=== PATIENT | female | born 1985 | race Caucasian/White ===

== ENCOUNTER 2022-12-05 19:58 | Inpatient (IN) | payer SELFPAY ==
[2022-12-05] MEDS ORDERED: Ondansetron ODT 4 MG TAB PO PRN (22:17)
[2022-12-05] MEDS ORDERED: Acetaminophen 650 MG Suppository PR PRN (22:17)
[2022-12-05] MEDS ORDERED: Sodium Chloride 0.9% 1,000 ML IV SCH ×2 (22:45)
[2022-12-05] MEDS: Morphine 4 MG/ML VIAL SLOW IVP PRN (23:06)
[2022-12-05] MEDS: Sodium Chloride 0.9% 1,000 ML IV SCH (23:12)
[2022-12-06 00:03] LABS: SARS-CoV-2 NAA Rapid Test Not Detected (NotDetected)
[2022-12-06] MEDS ORDERED: Morphine 4 MG/ML VIAL SLOW IVP SCH (00:30)
[2022-12-06] MEDS: Morphine 4 MG/ML VIAL SLOW IVP PRN ×5 (01:52→14:12)
[2022-12-06] MEDS: Sodium Chloride 0.9% 1,000 ML IV SCH ×3 (03:11→08:08)
[2022-12-06] MEDS: Ondansetron PF 4 MG/2 ML Vial IVP PRN ×2 (03:59→19:13)
[2022-12-06 06:10] LABS: Hemoglobin A1c 5.4 % (4.0-6.0)
[2022-12-06 06:28] LABS: Cardiac Risk 3.4 (Less than 4.5)
[2022-12-06] MEDS ORDERED: Sodium Chloride 0.9% 1,000 ML IV SCH (08:00)
[2022-12-06] MEDS: Pantoprazole 40 MG VIAL IVP SCH (08:48)
[2022-12-06] MEDS: D5 1/2 NS w/20 mEq KCL 1,000 ML IV SCH ×3 (08:48→20:04)
[2022-12-06 09:14] LABS: ALT (SGPT) 336 U/L (8-55); AST (SGOT) 152 U/L (5-34); Albumin 3.4 g/dL (3.5-5.0); Alkaline Phosphatase 194 U/L (40-110); Bilirubin, Direct 0.4 mg/dL (0.1-0.3); Bilirubin, Total 0.8 mg/dL (0.2-1.2); Protein, Total 6.2 g/dL (6.0-8.3)
[2022-12-06 09:27] LABS: Lipase 4573 U/L (8-78)
[2022-12-06] MEDS ORDERED: Indomethacin 50 MG SUPP ONE (09:33)
[2022-12-06] MEDS ORDERED: Iopamidol 15 ML ONE (09:34)
[2022-12-06] MEDS ORDERED: Fentanyl 100 MCG/2 ML VIAL ONE (09:38)
[2022-12-06] MEDS ORDERED: PHENYLEPHRINE-NS 100 MCG/ML 10 ML SYRINGE ONE (09:53)
[2022-12-06] MEDS ORDERED: Ondansetron PF 4 MG/2 ML Vial ONE ×2 (09:53→11:06)
[2022-12-06] MEDS ORDERED: Dexamethasone 20 MG/5 ML VIAL ONE (09:53)
[2022-12-06] MEDS ORDERED: Rocuronium Bromide 10 MG/ML (10ML VIAL) ONE (09:53)
[2022-12-06] MEDS ORDERED: PROPOFOL 200 MG/20 ML VIAL ONE (09:53)
[2022-12-06] MEDS ORDERED: Lidocaine 1% PF 5 ML VIAL ONE (09:53)
[2022-12-06] MEDS ORDERED: Glycopyrrolate 0.2 MG/ML 5 ML SYRINGE ONE (09:53)
[2022-12-06] MEDS ORDERED: NEOSTIGMINE 3 MG/3 ML SYR 3 MG/3 ML SYRINGE ONE (09:53)
[2022-12-06] MEDS ORDERED: Promethazine HCl 25 MG/ML VIAL IM PRN (10:59)
[2022-12-06] MEDS ORDERED: Ondansetron HCl/PF 4 MG/2 ML Vial IVP PRN (10:59)
[2022-12-06] MEDS ORDERED: Albuterol 200 PUFF (6.7GM INHALER) INH PRN (13:00)
[2022-12-06 16:58] LABS: Hemoglobin 14.8 g/dL (12.0-16.0)
[2022-12-06] MEDS: Morphine 2 MG/ML VIAL SLOW IVP PRN ×2 (19:08→23:14)
[2022-12-07] MEDS: Morphine 2 MG/ML VIAL SLOW IVP PRN ×2 (05:09→07:43)
[2022-12-07] MEDS: Ondansetron PF 4 MG/2 ML Vial IVP PRN (05:10)
[2022-12-07] MEDS: D5 1/2 NS w/20 mEq KCL 1,000 ML IV SCH (05:10)
[2022-12-07 05:28] LABS: Hemoglobin 13.4 g/dL (12.0-16.0); Mean Corpuscular HGB CONC 30.6 g/dL (32.0-36.0); Mean Corpuscular Hemoglobin 27.9 pg (27.0-31.0); Mean Corpuscular Volume 91.3 fl (78.0-98.0); Platelet Count 250 10x3/uL (130-400); RBC Distribution Width 13.1 % (11.5-14.5); Red Blood Cell (RBC) Count 4.81 mill/uL (4.20-5.40); White Blood Cell (WBC) Count 13.2 10x3/uL (4.8-10.8)
[2022-12-07 05:44] LABS: ALT (SGPT) 159 U/L (8-55); AST (SGOT) 61 U/L (5-34); Albumin 3.1 g/dL (3.5-5.0); Alkaline Phosphatase 107 U/L (40-110); Anion Gap 19 mmol/L (10-20); BUN (Urea Nitrogen) 32 mg/dL (7.0-18.7); Bilirubin, Total 0.6 mg/dL (0.2-1.2); Calc. Creatinine Clearance 66 mL/min (70-130); Carbon Dioxide 12 mmol/L (22-29); Chloride 106 mmol/L (98-107); Estimated GFR 40; Globulin 2.8 g/dL (2.4-3.5); Potassium 5.7 mmol/L (3.5-5.1); Protein, Total 5.9 g/dL (6.0-8.3); Sodium 131 mmol/L (136-145)
[2022-12-07 05:51] LABS: Calcium 4.9 mg/dL (7.8-10.44); Glucose 654 mg/dL (70-105)
[2022-12-07 05:53] LABS: Band 33 % (5-11); Lymphocytes 3 % (21-51); MDiff Complete? YES; Monocytes 4 % (0-10); Neutrophil 60 % (42-75)
[2022-12-07 05:57] LABS: Lipase 4997 U/L (8-78)
[2022-12-07] MEDS ORDERED: Dextrose 5% in Water 1,000 ML IV PRN (06:04)
[2022-12-07] MEDS ORDERED: Dextrose 50% Abboject 50 ML SYRINGE SLOW IVP PRN (06:04)
[2022-12-07] MEDS ORDERED: CALCIUM GLUC 1 GM/NS 50 ML 1 GM in Premix Bag 1 BAG IVPB SCH ×2 (06:15→11:45)
[2022-12-07] MEDS ORDERED: Insulin Regular 300 UNITS/3 ML VIAL SC SCH (06:15)
[2022-12-07] MEDS ORDERED: Calcium Carbonate 600 MG TAB PO SCH ×2 (06:30→20:45)
[2022-12-07] MEDS: Pantoprazole 40 MG VIAL IVP SCH (07:23)
[2022-12-07] MEDS: HumaLOG 300 UNITS/3 ML VIAL SC PRN ×2 (07:49→10:55)
[2022-12-07 08:21] LABS: Glucose 648 mg/dL (70-105)
[2022-12-07] MEDS ORDERED: Insulin Regular 300 UNITS/3 ML VIAL IVP SCH (08:30)
[2022-12-07] MEDS: Sodium Chloride 0.9% 1,000 ML IV SCH ×3 (08:33→20:15)
[2022-12-07] MEDS ORDERED: FENTANYL 50 MCG/ML 1 ML VIAL SLOW IVP PRN ×3 (09:17→10:11)
[2022-12-07] MEDS ORDERED: Sodium Chloride 0.9% 1,000 ML IV SCH (10:15)
[2022-12-07 10:48] LABS: Lactic Acid 2.4 mmol/L (0.5-2.2)
[2022-12-07 10:51] LABS: Anion Gap 16 mmol/L (10-20); BUN (Urea Nitrogen) 35 mg/dL (7.0-18.7); Calc. Creatinine Clearance 69 mL/min (70-130); Carbon Dioxide 13 mmol/L (22-29); Chloride 110 mmol/L (98-107); Estimated GFR 42; Potassium 4.9 mmol/L (3.5-5.1); Sodium 134 mmol/L (136-145)
[2022-12-07 11:28] LABS: Calcium 4.8 mg/dL (7.8-10.44); Glucose 576 mg/dL (70-105)
[2022-12-07] MEDS ORDERED: INSULIN REGULAR IN 0.9 % NACL 100 UNIT/100 ML BAG IVPB SCH (11:30)
[2022-12-07] MEDS ORDERED: HUMULIN R 100 UNITS in Sodium Chloride 0.9% 100 ML IVPB SCH (11:45)
[2022-12-07] MEDS: Fentanyl 100 MCG/2 ML VIAL SLOW IVP PRN ×5 (13:25→23:02)
[2022-12-07 14:14] LABS: Glucose 504 mg/dL (70-105)
[2022-12-07 15:52] LABS: Glucose 446 mg/dL (70-105)
[2022-12-07] MEDS ORDERED: Piperacillin/Tazobactam 3.375 GM in Sodium Chloride 0.9% 100 ML IVPB SCH ×2 (18:45→19:00)
[2022-12-07 20:08] LABS: Anion Gap 15 mmol/L (10-20); BUN (Urea Nitrogen) 36 mg/dL (7.0-18.7); Calc. Creatinine Clearance 72 mL/min (70-130); Carbon Dioxide 15 mmol/L (22-29); Chloride 112 mmol/L (98-107); Estimated GFR 44; Glucose 319 mg/dL (70-105); Potassium 4.6 mmol/L (3.5-5.1); Sodium 137 mmol/L (136-145)
[2022-12-07 20:11] LABS: Calcium 4.6 mg/dL (7.8-10.44)
[2022-12-07] MEDS ORDERED: Calcium Chloride 13.6 MEQ in Sodium Chloride 0.9% 100 ML IVPB SCH (20:45)
[2022-12-07] MEDS: Piperacillin/Tazobactam 3.375 GM in Sodium Chloride 0.9% 100 ML IVPB SCH (23:02)
[2022-12-08] MEDS: Fentanyl 100 MCG/2 ML VIAL SLOW IVP PRN ×10 (01:21→23:53)
[2022-12-08 04:31] LABS: Hemoglobin 12.6 g/dL (12.0-16.0); Mean Corpuscular HGB CONC 32.7 g/dL (32.0-36.0); Mean Corpuscular Volume 88.8 fl (78.0-98.0); Mean Platelet Volume 8.6 fL (7.4-10.4); Platelet Count 248 10x3/uL (130-400); RBC Distribution Width 13.1 % (11.5-14.5); Red Blood Cell (RBC) Count 4.34 mill/uL (4.20-5.40); White Blood Cell (WBC) Count 15.9 10x3/uL (4.8-10.8)
[2022-12-08 04:51] LABS: Lactic Acid 1.9 mmol/L (0.5-2.2)
[2022-12-08 04:55] LABS: ALT (SGPT) 91 U/L (8-55); AST (SGOT) 49 U/L (5-34); Albumin 2.6 g/dL (3.5-5.0); Alkaline Phosphatase 68 U/L (40-110); Anion Gap 14 mmol/L (10-20); BUN (Urea Nitrogen) 37 mg/dL (7.0-18.7); Bilirubin, Total 0.5 mg/dL (0.2-1.2); Calc. Creatinine Clearance 78 mL/min (70-130); Carbon Dioxide 14 mmol/L (22-29); Chloride 115 mmol/L (98-107); Estimated GFR 49; Globulin 2.7 g/dL (2.4-3.5); Glucose 216 mg/dL (70-105); Potassium 4.4 mmol/L (3.5-5.1); Protein, Total 5.3 g/dL (6.0-8.3); Sodium 139 mmol/L (136-145)
[2022-12-08 05:00] LABS: Calcium 4.8 mg/dL (7.8-10.44)
[2022-12-08 05:59] LABS: Band 13 % (5-11); Lymphocytes 14 % (21-51); MDiff Complete? YES; Monocytes 3 % (0-10); Neutrophil 70 % (42-75); Platelet Morphology Comment Appears Adequate; RBC Morphology Normal
[2022-12-08 06:07] LABS: Lipase 2847 U/L (8-78)
[2022-12-08] MEDS: Piperacillin/Tazobactam 3.375 GM in Sodium Chloride 0.9% 100 ML IVPB SCH ×3 (06:07→21:10)
[2022-12-08] MEDS: Sodium Chloride 0.9% 1,000 ML IV SCH ×3 (06:14→22:35)
[2022-12-08 08:20] LABS: Magnesium 1.3 mg/dL (1.6-2.6)
[2022-12-08] MEDS: Calcium Carbonate 600 MG TAB PO SCH (08:21)
[2022-12-08] MEDS: Pantoprazole 40 MG VIAL IVP SCH (08:21)
[2022-12-08] MEDS ORDERED: Magnesium 2 GM/50 ML(in water) 2 GM in Premix Bag 1 BAG IVPB SCH (08:30)
[2022-12-08] MEDS: HumaLOG 300 UNITS/3 ML VIAL SC PRN ×2 (21:07→23:58)
[2022-12-09 04:23] LABS: Hemoglobin 10.1 g/dL (12.0-16.0); Mean Corpuscular Hemoglobin 28.6 pg (27.0-31.0); Mean Corpuscular Volume 89.7 fl (78.0-98.0); Mean Platelet Volume 8.7 fL (7.4-10.4); Platelet Count 198 10x3/uL (130-400); RBC Distribution Width 13.3 % (11.5-14.5); Red Blood Cell (RBC) Count 3.52 mill/uL (4.20-5.40); White Blood Cell (WBC) Count 14.7 10x3/uL (4.8-10.8)
[2022-12-09] MEDS: Fentanyl 100 MCG/2 ML VIAL SLOW IVP PRN ×6 (04:30→23:56)
[2022-12-09 04:54] LABS: Anion Gap 16 mmol/L (10-20); BUN (Urea Nitrogen) 27 mg/dL (7.0-18.7); Calc. Creatinine Clearance 139 mL/min (70-130); Calcium 3.9 mg/dL (7.8-10.44); Carbon Dioxide 13 mmol/L (22-29); Chloride 111 mmol/L (98-107); Estimated GFR 87; Glucose 289 mg/dL (70-105); Magnesium 1.8 mg/dL (1.6-2.6); Phosphorus 1.4 mg/dL (2.3-4.7); Potassium 4.1 mmol/L (3.5-5.1); Sodium 136 mmol/L (136-145)
[2022-12-09] MEDS ORDERED: PHOS-NAK 1 PKT PACK PO SCH (05:30)
[2022-12-09] MEDS ORDERED: Calcium Chloride 1 GM/10 ML Abboject SYRINGE IVP SCH ×2 (05:30→21:00)
[2022-12-09] MEDS: Piperacillin/Tazobactam 3.375 GM in Sodium Chloride 0.9% 100 ML IVPB SCH ×3 (05:39→22:29)
[2022-12-09] MEDS: Sodium Chloride 0.9% 1,000 ML IV SCH ×3 (05:42→22:33)
[2022-12-09] MEDS: HumaLOG 300 UNITS/3 ML VIAL SC PRN ×2 (05:48→20:21)
[2022-12-09] MEDS ORDERED: Sodium Phosphate 15 MMOL in Sodium Chloride 0.9% 250 ML 250 ML IVPB SCH (09:00)
[2022-12-09] MEDS: Pantoprazole 40 MG VIAL IVP SCH (10:24)
[2022-12-09] MEDS: Calcium Carbonate 600 MG TAB PO SCH (10:25)
[2022-12-09 19:25] LABS: Calcium 4.1 mg/dL (7.8-10.44); Phosphorus 1.5 mg/dL (2.3-4.7)
[2022-12-10] MEDS: HumaLOG 300 UNITS/3 ML VIAL SC PRN ×5 (00:21→23:51)
[2022-12-10] MEDS: Fentanyl 100 MCG/2 ML VIAL SLOW IVP PRN ×3 (02:57→13:38)
[2022-12-10 04:10] LABS: Hemoglobin 9.6 g/dL (12.0-16.0); Mean Corpuscular Hemoglobin 28.9 pg (27.0-31.0); Mean Corpuscular Volume 87.7 fl (78.0-98.0); Mean Platelet Volume 8.1 fL (7.4-10.4); Platelet Count 181 10x3/uL (130-400); RBC Distribution Width 13.1 % (11.5-14.5); Red Blood Cell (RBC) Count 3.32 mill/uL (4.20-5.40); White Blood Cell (WBC) Count 11.8 10x3/uL (4.8-10.8)
[2022-12-10 04:35] LABS: Magnesium 1.7 mg/dL (1.6-2.6)
[2022-12-10 04:38] LABS: ALT (SGPT) 47 U/L (8-55); AST (SGOT) 33 U/L (5-34); Albumin 2.4 g/dL (3.5-5.0); Alkaline Phosphatase 68 U/L (40-110); Anion Gap 13 mmol/L (10-20); BUN (Urea Nitrogen) 15 mg/dL (7.0-18.7); Bilirubin, Total 0.6 mg/dL (0.2-1.2); Calc. Creatinine Clearance 174 mL/min (70-130); Calcium 4.8 mg/dL (7.8-10.44); Carbon Dioxide 16 mmol/L (22-29); Chloride 110 mmol/L (98-107); Estimated GFR 114; Globulin 2.6 g/dL (2.4-3.5); Glucose 266 mg/dL (70-105); Lipase 597 U/L (8-78); Potassium 3.5 mmol/L (3.5-5.1); Sodium 135 mmol/L (136-145)
[2022-12-10] MEDS: Piperacillin/Tazobactam 3.375 GM in Sodium Chloride 0.9% 100 ML IVPB SCH ×3 (05:51→21:00)
[2022-12-10] MEDS ORDERED: Sodium Phosphate 30 MMOL in Sodium Chloride 0.9% 250 ML 250 ML IVPB SCH (07:45)
[2022-12-10] MEDS: Pantoprazole 40 MG VIAL IVP SCH (08:26)
[2022-12-10] MEDS: Calcium Carbonate 600 MG TAB PO SCH (08:26)
[2022-12-10] MEDS ORDERED: Calcium Gluconate 4.6 MEQ in Sodium Chloride 0.9% 100 ML IVPB ONE (08:45)
[2022-12-10] MEDS: Sodium Chloride 0.9% 1,000 ML IV SCH ×2 (09:44→19:30)
[2022-12-10] MEDS ORDERED: CALCIUM GLUC 1 GM/NS 50 ML 1 GM in Premix Bag 1 BAG IVPB SCH (10:00)
[2022-12-10] MEDS: FENTANYL 50 MCG/ML 1 ML VIAL SLOW IVP PRN ×2 (19:30→23:47)
[2022-12-10 23:49] LABS: Campy jejuni + coli by PCR Negative (Negative); STEC Shiga Toxin 1+2 Negative (Negative); Salmonella spp. by PCR Negative (Negative); Shigella spp + EIEC by PCR Negative (Negative)
[2022-12-11] MEDS: FENTANYL 50 MCG/ML 1 ML VIAL SLOW IVP PRN ×6 (04:20→22:34)
[2022-12-11] MEDS: HumaLOG 300 UNITS/3 ML VIAL SC PRN ×3 (04:26→18:01)
[2022-12-11] MEDS: Piperacillin/Tazobactam 3.375 GM in Sodium Chloride 0.9% 100 ML IVPB SCH ×3 (05:49→22:33)
[2022-12-11 07:30] LABS: Hemoglobin 9.2 g/dL (12.0-16.0); Mean Corpuscular HGB CONC 33.8 g/dL (32.0-36.0); Mean Corpuscular Hemoglobin 29.2 pg (27.0-31.0); Mean Corpuscular Volume 86.3 fl (78.0-98.0); Mean Platelet Volume 7.8 fL (7.4-10.4); Platelet Count 222 10x3/uL (130-400); RBC Distribution Width 13.1 % (11.5-14.5); Red Blood Cell (RBC) Count 3.16 mill/uL (4.20-5.40); White Blood Cell (WBC) Count 17.2 10x3/uL (4.8-10.8)
[2022-12-11] MEDS: Pantoprazole 40 MG VIAL IVP SCH (07:33)
[2022-12-11] MEDS: Calcium Carbonate 600 MG TAB PO SCH ×3 (07:33→22:33)
[2022-12-11 07:59] LABS: Anion Gap 14 mmol/L (10-20); BUN (Urea Nitrogen) 6 mg/dL (7.0-18.7); Calc. Creatinine Clearance 186 mL/min (70-130); Carbon Dioxide 17 mmol/L (22-29); Chloride 105 mmol/L (98-107); Estimated GFR 117; Glucose 149 mg/dL (70-105); Magnesium 1.5 mg/dL (1.6-2.6); Potassium 3.3 mmol/L (3.5-5.1); Sodium 133 mmol/L (136-145)
[2022-12-11 08:17] LABS: Calcium 4.5 mg/dL (7.8-10.44)
[2022-12-11] MEDS ORDERED: Potassium Chloride 20 MEQ TAB PO SCH (08:30)
[2022-12-11] MEDS ORDERED: Magnesium 2 GM/50 ML(in water) 2 GM in Premix Bag 1 BAG IVPB SCH (08:30)
[2022-12-11] MEDS ORDERED: Potassium Phosphate 30 MMOL in Sodium Chloride 0.9% 500 ML IVPB SCH (09:00)
[2022-12-11] MEDS ORDERED: Iopamidol-370 76% 500 ML MDV (1 ML CHARGE) ONE (09:11)
[2022-12-11] MEDS: Ipratropium/Albuterol 3 ML NEB NEB SCH ×2 (16:46→17:30)
[2022-12-11] MEDS: Sodium Chloride 0.9% 1,000 ML IV SCH (16:48)
[2022-12-11] MEDS ORDERED: Furosemide 20 MG/2 ML VIAL SLOW IVP SCH (17:15)
[2022-12-12] MEDS: HumaLOG 300 UNITS/3 ML VIAL SC PRN ×5 (00:35→22:56)
[2022-12-12] MEDS: FENTANYL 50 MCG/ML 1 ML VIAL SLOW IVP PRN ×7 (01:08→22:53)
[2022-12-12] MEDS: Piperacillin/Tazobactam 3.375 GM in Sodium Chloride 0.9% 100 ML IVPB SCH ×3 (06:23→20:50)
[2022-12-12] MEDS: Pantoprazole 40 MG VIAL IVP SCH (08:51)
[2022-12-12] MEDS: Calcium Carbonate 600 MG TAB PO SCH ×2 (08:51→20:50)
[2022-12-12 10:41] LABS: Anion Gap 13 mmol/L (10-20); BUN (Urea Nitrogen) 4 mg/dL (7.0-18.7); Calc. Creatinine Clearance 161 mL/min (70-130); Carbon Dioxide 21 mmol/L (22-29); Chloride 99 mmol/L (98-107); Estimated GFR 105; Glucose 323 mg/dL (70-105); Magnesium 1.5 mg/dL (1.6-2.6); Potassium 3.3 mmol/L (3.5-5.1); Sodium 130 mmol/L (136-145)
[2022-12-12 10:49] LABS: Calcium 4.6 mg/dL (7.8-10.44)
[2022-12-12] MEDS ORDERED: Potassium Chloride 20 MEQ TAB PO SCH (11:00)
[2022-12-12] MEDS ORDERED: Albumin 25% 25 GM/100 ML BOT IVPB SCH (11:00)
[2022-12-12] MEDS ORDERED: Furosemide 20 MG/2 ML VIAL SLOW IVP SCH (11:00)
[2022-12-12] MEDS ORDERED: Sodium Phosphate 30 MMOL in Sodium Chloride 0.9% 250 ML 250 ML IVPB SCH (11:30)
[2022-12-12] MEDS ORDERED: Calcium Chloride 1 GM/10 ML Abboject SYRINGE IVP SCH (12:00)
[2022-12-12] MEDS ORDERED: Calcium Gluconate 13.8 MEQ in Sodium Chloride 0.9% 100 ML IVPB SCH (13:30)
[2022-12-12] MEDS: Magnesium Oxide 400 MG TAB PO SCH (20:50)
[2022-12-13] MEDS: FENTANYL 50 MCG/ML 1 ML VIAL SLOW IVP PRN (05:03)
[2022-12-13] MEDS: Piperacillin/Tazobactam 3.375 GM in Sodium Chloride 0.9% 100 ML IVPB SCH (05:04)
[2022-12-13] MEDS: HumaLOG 300 UNITS/3 ML VIAL SC PRN ×4 (05:50→21:02)
[2022-12-13 06:11] LABS: Hemoglobin 8.5 g/dL (12.0-16.0); Mean Corpuscular HGB CONC 33.5 g/dL (32.0-36.0); Mean Corpuscular Hemoglobin 28.6 pg (27.0-31.0); Mean Corpuscular Volume 85.5 fl (78.0-98.0); Mean Platelet Volume 8.2 fL (7.4-10.4); Platelet Count 233 10x3/uL (130-400); Red Blood Cell (RBC) Count 2.97 mill/uL (4.20-5.40); White Blood Cell (WBC) Count 24.5 10x3/uL (4.8-10.8)
[2022-12-13 06:36] LABS: Anion Gap 16 mmol/L (10-20); BUN (Urea Nitrogen) Less than 4 mg/dL (7.0-18.7); Calc. Creatinine Clearance 170 mL/min (70-130); Calcium 4.9 mg/dL (7.8-10.44); Carbon Dioxide 22 mmol/L (22-29); Chloride 100 mmol/L (98-107); Estimated GFR 112; Glucose 206 mg/dL (70-105); Magnesium 1.4 mg/dL (1.6-2.6); Phosphorus 1.5 mg/dL (2.3-4.7); Potassium 2.6 mmol/L (3.5-5.1); Sodium 135 mmol/L (136-145)
[2022-12-13] MEDS ORDERED: Electrolyte Replacement Protocol 1 EACH FS SCH (06:45)
[2022-12-13] MEDS ORDERED: Magnesium Sulfate In Water 4 GM in Premix Bag 1 BAG IVPB SCH (07:00)
[2022-12-13] MEDS ORDERED: Calcium Gluc 4.6 MEQ/10 ML (100 MG/ML) SLOW IVP SCH (07:00)
[2022-12-13] MEDS ORDERED: Potassium Phosphate 22 MMOL in Sodium Chloride 0.9% 250 ML 250 ML IVPB SCH (07:00)
[2022-12-13] MEDS ORDERED: Potassium Chloride 40 MEQ in Sodium Chloride 0.9% 250 ML 250 ML IVPB SCH (07:30)
[2022-12-13] MEDS: Magnesium Oxide 400 MG TAB PO SCH ×2 (08:57→21:04)
[2022-12-13] MEDS: Calcium Carbonate 600 MG TAB PO SCH ×2 (08:57→21:04)
[2022-12-13] MEDS: Pantoprazole 40 MG VIAL IVP SCH (08:57)
[2022-12-13] MEDS ORDERED: Cholecalciferol 1,000 UNITS (25 MCG) TAB PO SCH (10:00)
[2022-12-13] MEDS ORDERED: Insulin Glargine 30 UNITS/0.3 ML VIAL SC SCH (10:00)
[2022-12-13] MEDS ORDERED: Metoclopramide HCl 10 MG/2 ML VIAL IVP PRN (11:57)
[2022-12-13] MEDS ORDERED: Meropenem 1 GM in Sodium Chloride 0.9% 100 ML IVPB SCH (14:00)
[2022-12-13] MEDS: traMADol HCl 50 MG TAB PO PRN (14:09)
[2022-12-13 19:07] LABS: Anion Gap 14 mmol/L (10-20); BUN (Urea Nitrogen) Less than 4 mg/dL (7.0-18.7); Calc. Creatinine Clearance 166 mL/min (70-130); Carbon Dioxide 24 mmol/L (22-29); Chloride 97 mmol/L (98-107); Estimated GFR 108; Glucose 273 mg/dL (70-105); Phosphorus 1.7 mg/dL (2.3-4.7); Potassium 2.9 mmol/L (3.5-5.1); Sodium 132 mmol/L (136-145)
[2022-12-13] MEDS ORDERED: Calcium Gluconate 4.6 MEQ in Sodium Chloride 0.9% 100 ML IVPB ONE (19:48)
[2022-12-13] MEDS ORDERED: CALCIUM GLUC 1 GM/NS 50 ML 1 GM in Premix Bag 1 BAG IVPB SCH (20:00)
[2022-12-13] MEDS ORDERED: Magnesium 2 GM/50 ML(in water) 2 GM in Premix Bag 1 BAG IVPB SCH (20:15)
[2022-12-13] MEDS ORDERED: Potassium Phosphate 15 MMOL in Sodium Chloride 0.9% 100 ML IVPB SCH (20:15)
[2022-12-13] MEDS: Potassium Chloride 20 MEQ in Premix Bag 1 BAG IVPB SCH ×2 (21:14→23:11)
[2022-12-13] MEDS: Meropenem 1 GM in Sodium Chloride 0.9% 100 ML IVPB SCH (23:05)
[2022-12-14] MEDS: Potassium Chloride 20 MEQ in Premix Bag 1 BAG IVPB SCH ×2 (01:24→03:52)
[2022-12-14] MEDS: Acetaminophen 325 MG TAB PO PRN ×2 (03:55→21:07)
[2022-12-14] MEDS: Meropenem 1 GM in Sodium Chloride 0.9% 100 ML IVPB SCH ×3 (06:06→21:06)
[2022-12-14] MEDS: HumaLOG 300 UNITS/3 ML VIAL SC PRN ×4 (06:07→21:18)
[2022-12-14 06:12] LABS: ALT (SGPT) 31 U/L (8-55); AST (SGOT) 44 U/L (5-34); Albumin 2.6 g/dL (3.5-5.0); Alkaline Phosphatase 125 U/L (40-110); Anion Gap 16 mmol/L (10-20); BUN (Urea Nitrogen) 4 mg/dL (7.0-18.7); Bilirubin, Total 0.6 mg/dL (0.2-1.2); Calc. Creatinine Clearance 175 mL/min (70-130); Carbon Dioxide 21 mmol/L (22-29); Chloride 98 mmol/L (98-107); Estimated GFR 116; Globulin 3.1 g/dL (2.4-3.5); Glucose 194 mg/dL (70-105); Phosphorus 1.7 mg/dL (2.3-4.7); Potassium 3.5 mmol/L (3.5-5.1); Protein, Total 5.7 g/dL (6.0-8.3); Sodium 131 mmol/L (136-145)
[2022-12-14 06:16] LABS: Band 43 % (5-11); Hemoglobin 8.6 g/dL (12.0-16.0); Hypochromia SLIGHT = 6-15 cells (100X) (0-5/hpf); Lymphocytes 1 % (21-51); MDiff Complete? YES; Mean Corpuscular HGB CONC 33.2 g/dL (32.0-36.0); Mean Corpuscular Hemoglobin 28.5 pg (27.0-31.0); Mean Corpuscular Volume 85.9 fl (78.0-98.0); Mean Platelet Volume 8.1 fL (7.4-10.4); Monocytes 4 % (0-10); Neutrophil 52 % (42-75); Platelet Count 251 10x3/uL (130-400); Platelet Morphology Comment Appears Adequate; Red Blood Cell (RBC) Count 3.01 mill/uL (4.20-5.40); White Blood Cell (WBC) Count 25.8 10x3/uL (4.8-10.8)
[2022-12-14 06:17] LABS: Calcium 5.2 mg/dL (7.8-10.44)
[2022-12-14] MEDS ORDERED: Magnesium 2 GM/50 ML(in water) 2 GM in Premix Bag 1 BAG IVPB SCH (08:00)
[2022-12-14] MEDS ORDERED: Potassium Chloride 20 MEQ TAB PO SCH (08:00)
[2022-12-14] MEDS: PHOS-NAK 1 PKT PACK PO SCH ×2 (08:21→12:12)
[2022-12-14] MEDS ORDERED: CALCIUM GLUC 1 GM/NS 50 ML 1 GM in Premix Bag 1 BAG IVPB SCH ×2 (09:00→17:00)
[2022-12-14] MEDS ORDERED: Calcium Gluconate 4.6 MEQ in Sodium Chloride 0.9% 100 ML IVPB SCH (09:00)
[2022-12-14] MEDS: Insulin Glargine 30 UNITS/0.3 ML VIAL SC SCH (10:01)
[2022-12-14] MEDS: Calcium Carbonate 600 MG TAB PO SCH ×2 (10:01→21:08)
[2022-12-14] MEDS: Magnesium Oxide 400 MG TAB PO SCH ×2 (10:01→21:08)
[2022-12-14] MEDS: Pantoprazole 40 MG VIAL IVP SCH (10:02)
[2022-12-14] MEDS: Fluconazole In NaCl,Iso-Osm 400 MG in Premix Bag 1 BAG IVPB SCH (10:02)
[2022-12-14] MEDS: Cholecalciferol 1,000 UNITS (25 MCG) TAB PO SCH (10:02)
[2022-12-14 16:16] LABS: Anion Gap 13 mmol/L (10-20); BUN (Urea Nitrogen) 4 mg/dL (7.0-18.7); Calc. Creatinine Clearance 183 mL/min (70-130); Carbon Dioxide 23 mmol/L (22-29); Chloride 99 mmol/L (98-107); Estimated GFR 110; Glucose 227 mg/dL (70-105); Potassium 3.5 mmol/L (3.5-5.1); Sodium 131 mmol/L (136-145)
[2022-12-14 16:20] LABS: Calcium 5.6 mg/dL (7.8-10.44)
[2022-12-14] MEDS ORDERED: Calcium Gluconate 4.6 MEQ in Sodium Chloride 0.9% 100 ML IVPB ONE (16:48)
[2022-12-14] MEDS: traMADol HCl 50 MG TAB PO PRN (21:07)
[2022-12-15] MEDS: Meropenem 1 GM in Sodium Chloride 0.9% 100 ML IVPB SCH ×3 (05:40→21:46)
[2022-12-15] MEDS: traMADol HCl 50 MG TAB PO PRN ×2 (05:46→20:37)
[2022-12-15] MEDS: Acetaminophen 325 MG TAB PO PRN ×2 (05:47→20:36)
[2022-12-15] MEDS: HumaLOG 300 UNITS/3 ML VIAL SC PRN ×4 (05:48→20:35)
[2022-12-15 07:17] LABS: Mean Corpuscular HGB CONC 32.6 g/dL (32.0-36.0); Mean Corpuscular Hemoglobin 28.3 pg (27.0-31.0); Mean Corpuscular Volume 86.9 fl (78.0-98.0); Platelet Count 249 10x3/uL (130-400); Red Blood Cell (RBC) Count 2.81 mill/uL (4.20-5.40); White Blood Cell (WBC) Count 21.6 10x3/uL (4.8-10.8)
[2022-12-15 07:31] LABS: ALT (SGPT) 25 U/L (8-55); AST (SGOT) 30 U/L (5-34); Albumin 2.3 g/dL (3.5-5.0); Alkaline Phosphatase 98 U/L (40-110); Anion Gap 10 mmol/L (10-20); BUN (Urea Nitrogen) 5 mg/dL (7.0-18.7); Bilirubin, Total 0.5 mg/dL (0.2-1.2); Calc. Creatinine Clearance 200 mL/min (70-130); Carbon Dioxide 26 mmol/L (22-29); Chloride 101 mmol/L (98-107); Estimated GFR 117; Globulin 2.9 g/dL (2.4-3.5); Glucose 186 mg/dL (70-105); Potassium 3.4 mmol/L (3.5-5.1); Protein, Total 5.2 g/dL (6.0-8.3); Sodium 134 mmol/L (136-145)
[2022-12-15] MEDS ORDERED: Potassium Chloride 20 MEQ TAB PO SCH ×2 (08:00→21:00)
[2022-12-15 08:02] LABS: Calcium 5.6 mg/dL (7.8-10.44)
[2022-12-15 08:37] LABS: Band 9 % (5-11); Hypochromia SLIGHT = 6-15 cells (100X) (0-5/hpf); Lymphocytes 7 % (21-51); MDiff Complete? YES; Monocytes 2 % (0-10); Neutrophil 82 % (42-75); Platelet Morphology Comment Appears Adequate
[2022-12-15] MEDS: Insulin Glargine 30 UNITS/0.3 ML VIAL SC SCH (08:48)
[2022-12-15] MEDS: Calcium Carbonate 600 MG TAB PO SCH ×2 (08:49→20:36)
[2022-12-15] MEDS: Magnesium Oxide 400 MG TAB PO SCH (08:49)
[2022-12-15] MEDS: Fluconazole In NaCl,Iso-Osm 400 MG in Premix Bag 1 BAG IVPB SCH (08:49)
[2022-12-15] MEDS: Cholecalciferol 1,000 UNITS (25 MCG) TAB PO SCH (08:49)
[2022-12-15] MEDS: Pantoprazole 40 MG VIAL IVP SCH (08:49)
[2022-12-15] MEDS ORDERED: Furosemide 40 MG/4 ML VIAL SLOW IVP SCH ×2 (09:00→15:00)
[2022-12-15] MEDS ORDERED: Calcium Gluconate 4.6 MEQ in Sodium Chloride 0.9% 100 ML IVPB SCH (09:00)
[2022-12-15] MEDS ORDERED: CALCIUM GLUC 1 GM/NS 50 ML 1 GM in Premix Bag 1 BAG IVPB SCH (09:15)
[2022-12-15] MEDS: Potassium Chloride 20 MEQ TAB PO SCH ×3 (14:05→17:49)
[2022-12-15] MEDS: CALCIUM GLUC 1 GM/NS 50 ML 1 GM in Premix Bag 1 BAG IVPB SCH ×2 (20:38→21:46)
[2022-12-16] MEDS: Meropenem 1 GM in Sodium Chloride 0.9% 100 ML IVPB SCH ×3 (05:48→21:01)
[2022-12-16] MEDS: HumaLOG 300 UNITS/3 ML VIAL SC PRN ×3 (05:58→20:59)
[2022-12-16 06:32] LABS: Band 25 % (5-11); Hemoglobin 8.4 g/dL (12.0-16.0); Hypochromia SLIGHT = 6-15 cells (100X) (0-5/hpf); Lymphocytes 2 % (21-51); MDiff Complete? YES; Mean Corpuscular HGB CONC 31.6 g/dL (32.0-36.0); Mean Corpuscular Hemoglobin 27.9 pg (27.0-31.0); Mean Corpuscular Volume 88.2 fl (78.0-98.0); Mean Platelet Volume 9.5 fL (7.4-10.4); Monocytes 12 % (0-10); Neutrophil 61 % (42-75); Platelet Count 272 10x3/uL (130-400); Platelet Morphology Comment Appears Adequate; RBC Distribution Width 13.2 % (11.5-14.5); Red Blood Cell (RBC) Count 3.03 mill/uL (4.20-5.40); White Blood Cell (WBC) Count 22.4 10x3/uL (4.8-10.8)
[2022-12-16 06:36] LABS: Phosphorus 1.6 mg/dL (2.3-4.7)
[2022-12-16 06:38] LABS: ALT (SGPT) 25 U/L (8-55); AST (SGOT) 33 U/L (5-34); Albumin 2.4 g/dL (3.5-5.0); Alkaline Phosphatase 99 U/L (40-110); Anion Gap 16 mmol/L (10-20); BUN (Urea Nitrogen) 6 mg/dL (7.0-18.7); Bilirubin, Total 0.5 mg/dL (0.2-1.2); Calc. Creatinine Clearance 186 mL/min (70-130); Carbon Dioxide 25 mmol/L (22-29); Chloride 96 mmol/L (98-107); Estimated GFR 112; Globulin 3.4 g/dL (2.4-3.5); Glucose 231 mg/dL (70-105); Lipase 229 U/L (8-78); Magnesium 1.5 mg/dL (1.6-2.6); Potassium 4.9 mmol/L (3.5-5.1); Protein, Total 5.8 g/dL (6.0-8.3); Sodium 132 mmol/L (136-145)
[2022-12-16 06:45] LABS: Calcium 6.3 mg/dL (7.8-10.44)
[2022-12-16] MEDS ORDERED: Calcium Gluconate 4.6 MEQ in Sodium Chloride 0.9% 100 ML IVPB SCH (07:00)
[2022-12-16] MEDS ORDERED: CALCIUM GLUC 1 GM/NS 50 ML 1 GM in Premix Bag 1 BAG IVPB SCH (08:00)
[2022-12-16] MEDS ORDERED: Magnesium 2 GM/50 ML(in water) 2 GM in Premix Bag 1 BAG IVPB SCH (08:00)
[2022-12-16] MEDS: Insulin Glargine 30 UNITS/0.3 ML VIAL SC SCH (08:58)
[2022-12-16] MEDS: Saccharomyces boulardii 250 MG CAP PO SCH (08:58)
[2022-12-16] MEDS: Fluconazole In NaCl,Iso-Osm 400 MG in Premix Bag 1 BAG IVPB SCH (08:58)
[2022-12-16] MEDS: PHOS-NAK 1 PKT PACK PO SCH ×2 (08:58→21:00)
[2022-12-16] MEDS: Cholecalciferol 1,000 UNITS (25 MCG) TAB PO SCH (08:58)
[2022-12-16] MEDS: Calcium Carbonate 600 MG TAB PO SCH ×2 (08:58→21:00)
[2022-12-16] MEDS ORDERED: Furosemide 40 MG in Sodium Chloride 0.9% 90 ML IVPB ONE (15:07)
[2022-12-16] MEDS ORDERED: Furosemide 40 MG/4 ML VIAL SLOW IVP SCH (15:30)
[2022-12-16] MEDS: Acetaminophen 325 MG TAB PO PRN (21:00)
[2022-12-17] MEDS: traMADol HCl 50 MG TAB PO PRN (04:24)
[2022-12-17] MEDS: Acetaminophen 325 MG TAB PO PRN (04:26)
[2022-12-17] MEDS: Meropenem 1 GM in Sodium Chloride 0.9% 100 ML IVPB SCH ×3 (05:54→20:40)
[2022-12-17] MEDS: HumaLOG 300 UNITS/3 ML VIAL SC PRN ×4 (05:55→21:33)
[2022-12-17 06:37] LABS: Hemoglobin 7.7 g/dL (12.0-16.0); Mean Corpuscular Hemoglobin 28.3 pg (27.0-31.0); Mean Corpuscular Volume 88.2 fl (78.0-98.0); Mean Platelet Volume 7.6 fL (7.4-10.4); Platelet Count 352 10x3/uL (130-400); RBC Distribution Width 13.1 % (11.5-14.5); Red Blood Cell (RBC) Count 2.71 mill/uL (4.20-5.40); White Blood Cell (WBC) Count 18.3 10x3/uL (4.8-10.8)
[2022-12-17 06:55] LABS: ALT (SGPT) 22 U/L (8-55); AST (SGOT) 31 U/L (5-34); Albumin 2.3 g/dL (3.5-5.0); Alkaline Phosphatase 93 U/L (40-110); Anion Gap 13 mmol/L (10-20); BUN (Urea Nitrogen) 6 mg/dL (7.0-18.7); Bilirubin, Total 0.5 mg/dL (0.2-1.2); Calc. Creatinine Clearance 212 mL/min (70-130); Carbon Dioxide 25 mmol/L (22-29); Chloride 98 mmol/L (98-107); Estimated GFR 119; Globulin 3.1 g/dL (2.4-3.5); Glucose 217 mg/dL (70-105); Magnesium 1.4 mg/dL (1.6-2.6); Potassium 4.3 mmol/L (3.5-5.1); Protein, Total 5.4 g/dL (6.0-8.3); Sodium 132 mmol/L (136-145)
[2022-12-17 06:59] LABS: Calcium 6.6 mg/dL (7.8-10.44)
[2022-12-17 07:04] LABS: Phosphorus 2.2 mg/dL (2.3-4.7)
[2022-12-17] MEDS ORDERED: Magnesium Sulfate In Water 4 GM in Premix Bag 1 BAG IVPB SCH (08:00)
[2022-12-17] MEDS: Fluconazole In NaCl,Iso-Osm 400 MG in Premix Bag 1 BAG IVPB SCH (09:14)
[2022-12-17] MEDS: Insulin Glargine 30 UNITS/0.3 ML VIAL SC SCH ×2 (09:15→20:40)
[2022-12-17] MEDS: Saccharomyces boulardii 250 MG CAP PO SCH (09:16)
[2022-12-17] MEDS: Cholecalciferol 1,000 UNITS (25 MCG) TAB PO SCH (09:16)
[2022-12-17] MEDS: PHOS-NAK 1 PKT PACK PO SCH ×2 (09:16→20:40)
[2022-12-17] MEDS: Calcium Carbonate 600 MG TAB PO SCH ×2 (09:16→20:40)
[2022-12-17 10:50] LABS: Band 30 % (5-11); Eosinophils 2 % (0-10); Lymphocytes 3 % (21-51); MDiff Complete? YES; Metamyelocyte 1 % (0-0); Monocytes 6 % (0-10); Neutrophil 58 % (42-75); Platelet Morphology Comment Appears Adequate; Polychromasia SLIGHT = 2-3 cells (100X) (0-2/hpf)
[2022-12-18] MEDS: Acetaminophen 325 MG TAB PO PRN (05:28)
[2022-12-18] MEDS: Meropenem 1 GM in Sodium Chloride 0.9% 100 ML IVPB SCH ×3 (05:28→21:16)
[2022-12-18] MEDS: HumaLOG 300 UNITS/3 ML VIAL SC PRN ×4 (05:34→21:16)
[2022-12-18 06:22] LABS: Hemoglobin 8.3 g/dL (12.0-16.0); Mean Corpuscular HGB CONC 32.7 g/dL (32.0-36.0); Mean Corpuscular Hemoglobin 28.9 pg (27.0-31.0); Mean Corpuscular Volume 88.4 fl (78.0-98.0); Mean Platelet Volume 7.6 fL (7.4-10.4); Platelet Count 419 10x3/uL (130-400); RBC Distribution Width 13.2 % (11.5-14.5); Red Blood Cell (RBC) Count 2.87 mill/uL (4.20-5.40); White Blood Cell (WBC) Count 20.2 10x3/uL (4.8-10.8)
[2022-12-18 06:33] LABS: Anion Gap 14 mmol/L (10-20); BUN (Urea Nitrogen) 5 mg/dL (7.0-18.7); Calc. Creatinine Clearance 209 mL/min (70-130); Calcium 7.4 mg/dL (7.8-10.44); Carbon Dioxide 23 mmol/L (22-29); Chloride 99 mmol/L (98-107); Estimated GFR 118; Glucose 214 mg/dL (70-105); Lipase 155 U/L (8-78); Potassium 4.9 mmol/L (3.5-5.1); Sodium 131 mmol/L (136-145)
[2022-12-18 06:51] LABS: Band 26 % (5-11); Hypochromia SLIGHT = 6-15 cells (100X) (0-5/hpf); Lymphocytes 8 % (21-51); MDiff Complete? YES; Monocytes 9 % (0-10); Neutrophil 57 % (42-75); Platelet Morphology Comment Appears Adequate
[2022-12-18] MEDS: Calcium Carbonate 600 MG TAB PO SCH ×2 (08:43→21:16)
[2022-12-18] MEDS: Saccharomyces boulardii 250 MG CAP PO SCH (08:44)
[2022-12-18] MEDS: Cholecalciferol 1,000 UNITS (25 MCG) TAB PO SCH (08:44)
[2022-12-18] MEDS: Insulin Glargine 30 UNITS/0.3 ML VIAL SC SCH ×2 (08:45→21:16)
[2022-12-18] MEDS: Fluconazole In NaCl,Iso-Osm 400 MG in Premix Bag 1 BAG IVPB SCH (08:46)
[2022-12-18] MEDS ORDERED: Iopamidol-370 76% 500 ML MDV (1 ML CHARGE) ONE (09:58)
[2022-12-18 15:47] LABS: INR-International Normal Ratio 1.4; PTT 35.1 sec (22.9-36.1); Prothrombin Time 17.6 sec (12.0-14.7)
[2022-12-19] MEDS: Acetaminophen 325 MG TAB PO PRN ×2 (02:00→21:37)
[2022-12-19] MEDS: HumaLOG 300 UNITS/3 ML VIAL SC PRN ×2 (05:32→17:45)
[2022-12-19] MEDS: Meropenem 1 GM in Sodium Chloride 0.9% 100 ML IVPB SCH ×3 (05:33→21:39)
[2022-12-19 06:07] LABS: Anion Gap 13 mmol/L (10-20); BUN (Urea Nitrogen) 6 mg/dL (7.0-18.7); Calc. Creatinine Clearance 234 mL/min (70-130); Calcium 7.8 mg/dL (7.8-10.44); Carbon Dioxide 23 mmol/L (22-29); Chloride 101 mmol/L (98-107); Estimated GFR 118; Glucose 204 mg/dL (70-105); Potassium 4.7 mmol/L (3.5-5.1); Sodium 132 mmol/L (136-145)
[2022-12-19 06:11] LABS: Band 21 % (5-11); Hemoglobin 7.8 g/dL (12.0-16.0); Hypochromia SLIGHT = 6-15 cells (100X) (0-5/hpf); Lymphocytes 10 % (21-51); MDiff Complete? YES; Mean Corpuscular HGB CONC 31.1 g/dL (32.0-36.0); Mean Corpuscular Hemoglobin 27.8 pg (27.0-31.0); Mean Corpuscular Volume 89.5 fl (78.0-98.0); Mean Platelet Volume 8.4 fL (7.4-10.4); Monocytes 3 % (0-10); Neutrophil 66 % (42-75); Platelet Count 357 10x3/uL (130-400); Platelet Morphology Comment Appears Adequate; RBC Distribution Width 13.3 % (11.5-14.5); Red Blood Cell (RBC) Count 2.81 mill/uL (4.20-5.40); White Blood Cell (WBC) Count 18.5 10x3/uL (4.8-10.8)
[2022-12-19] MEDS: Calcium Carbonate 600 MG TAB PO SCH ×2 (08:46→21:38)
[2022-12-19] MEDS: Fluconazole In NaCl,Iso-Osm 400 MG in Premix Bag 1 BAG IVPB SCH (08:46)
[2022-12-19] MEDS: Saccharomyces boulardii 250 MG CAP PO SCH (08:46)
[2022-12-19] MEDS: Cholecalciferol 1,000 UNITS (25 MCG) TAB PO SCH (08:46)
[2022-12-19 08:47] LABS: BHCG - Serum Negative (NEGATIVE); Pregs Control Background? CLEAR/WHITE (CLR/WHITE); Pregs Control Bar Appear? YES (CONTROL BAR)
[2022-12-19] MEDS: Insulin Glargine 30 UNITS/0.3 ML VIAL SC SCH ×2 (08:47→21:39)
[2022-12-19] MEDS ORDERED: Sodium Bicarbonate 2.5 MEQ/5 ML VIAL ONE (10:58)
[2022-12-19] MEDS ORDERED: Midazolam HCl 2 mg/2 ml Vial ONE (10:59)
[2022-12-19] MEDS ORDERED: Fentanyl 100 MCG/2 ML VIAL ONE (10:59)
[2022-12-20] MEDS: HumaLOG 300 UNITS/3 ML VIAL SC PRN ×4 (05:41→21:57)
[2022-12-20] MEDS: Meropenem 1 GM in Sodium Chloride 0.9% 100 ML IVPB SCH ×3 (05:41→21:55)
[2022-12-20 07:32] LABS: Hemoglobin 7.5 g/dL (12.0-16.0); Mean Corpuscular HGB CONC 31.6 g/dL (32.0-36.0); Mean Corpuscular Hemoglobin 27.9 pg (27.0-31.0); Mean Corpuscular Volume 88.3 fl (78.0-98.0); Mean Platelet Volume 7.3 fL (7.4-10.4); Platelet Count 435 10x3/uL (130-400); Red Blood Cell (RBC) Count 2.67 mill/uL (4.20-5.40); White Blood Cell (WBC) Count 16.2 10x3/uL (4.8-10.8)
[2022-12-20 07:44] LABS: Anion Gap 11 mmol/L (10-20); BUN (Urea Nitrogen) 6 mg/dL (7.0-18.7); Calc. Creatinine Clearance 234 mL/min (70-130); Carbon Dioxide 26 mmol/L (22-29); Chloride 99 mmol/L (98-107); Estimated GFR 118; Glucose 235 mg/dL (70-105); Potassium 4.2 mmol/L (3.5-5.1); Sodium 132 mmol/L (136-145)
[2022-12-20] MEDS: Saccharomyces boulardii 250 MG CAP PO SCH (08:20)
[2022-12-20] MEDS: Calcium Carbonate 600 MG TAB PO SCH ×2 (08:20→21:55)
[2022-12-20] MEDS: Cholecalciferol 1,000 UNITS (25 MCG) TAB PO SCH (08:20)
[2022-12-20] MEDS: Insulin Glargine 30 UNITS/0.3 ML VIAL SC SCH ×2 (08:21→21:55)
[2022-12-20] MEDS: Fluconazole In NaCl,Iso-Osm 400 MG in Premix Bag 1 BAG IVPB SCH (08:21)
[2022-12-20 11:59] LABS: Band 38 % (5-11); Lymphocytes 5 % (21-51); MDiff Complete? YES; Monocytes 4 % (0-10); Myelocyte 1 % (0-0); Neutrophil 52 % (42-75); Nucleated RBC 1 % (0); Platelet Morphology Comment Appears Increased; Polychromasia SLIGHT = 2-3 cells (100X) (0-2/hpf)
[2022-12-21] MEDS: HumaLOG 300 UNITS/3 ML VIAL SC PRN ×3 (06:16→18:19)
[2022-12-21] MEDS: Meropenem 1 GM in Sodium Chloride 0.9% 100 ML IVPB SCH ×3 (06:16→21:35)
[2022-12-21 06:57] LABS: Hemoglobin 7.6 g/dL (12.0-16.0); Mean Corpuscular HGB CONC 32.7 g/dL (32.0-36.0); Mean Corpuscular Hemoglobin 28.9 pg (27.0-31.0); Mean Corpuscular Volume 88.2 fl (78.0-98.0); Mean Platelet Volume 8.2 fL (7.4-10.4); Platelet Count 373 10x3/uL (130-400); RBC Distribution Width 13.3 % (11.5-14.5); Red Blood Cell (RBC) Count 2.62 mill/uL (4.20-5.40); White Blood Cell (WBC) Count 13.8 10x3/uL (4.8-10.8)
[2022-12-21 07:02] LABS: Anion Gap 15 mmol/L (10-20); BUN (Urea Nitrogen) 7 mg/dL (7.0-18.7); Calc. Creatinine Clearance 193 mL/min (70-130); Calcium 8.2 mg/dL (7.8-10.44); Carbon Dioxide 24 mmol/L (22-29); Chloride 99 mmol/L (98-107); Estimated GFR 119; Glucose 191 mg/dL (70-105); Potassium 4.5 mmol/L (3.5-5.1); Sodium 133 mmol/L (136-145)
[2022-12-21 07:56] LABS: MDiff Complete? YES
[2022-12-21 07:57] LABS: Band 28 % (5-11); Lymphocytes 6 % (21-51); Metamyelocyte 1 % (0-0); Monocytes 9 % (0-10); Myelocyte 1 % (0-0); Neutrophil 53 % (42-75); Nucleated RBC 1 % (0); Platelet Morphology Comment Appears Adequate; Polychromasia MODERATE = 3-4 cells (100X) (0-2/hpf); Reactive Lymphocytes 2 % (0-10)
[2022-12-21] MEDS: Fluconazole In NaCl,Iso-Osm 400 MG in Premix Bag 1 BAG IVPB SCH (10:17)
[2022-12-21] MEDS: Cholecalciferol 1,000 UNITS (25 MCG) TAB PO SCH (10:18)
[2022-12-21] MEDS: Saccharomyces boulardii 250 MG CAP PO SCH (10:18)
[2022-12-21] MEDS: Calcium Carbonate 600 MG TAB PO SCH ×2 (10:18→21:35)
[2022-12-21] MEDS: Insulin Glargine 30 UNITS/0.3 ML VIAL SC SCH ×2 (10:19→21:35)
[2022-12-22] MEDS: Meropenem 1 GM in Sodium Chloride 0.9% 100 ML IVPB SCH ×3 (05:23→21:06)
[2022-12-22] MEDS: Acetaminophen 325 MG TAB PO PRN (05:24)
[2022-12-22] MEDS: HumaLOG 300 UNITS/3 ML VIAL SC PRN ×4 (05:25→21:09)
[2022-12-22 06:29] LABS: #Eosinphils 0.1 thou/uL (0.0-0.7); #Monocytes 0.7 thou/uL (0.11-0.59); %Basophils 0.4 % (0.0-1.0); %Lymphocytes 8.6 % (21.0-51.0); %Monocytes 5.9 % (0.0-10.0); %Neutrophils 84.2 % (42.0-75.0); Hemoglobin 7.4 g/dL (12.0-16.0); Mean Corpuscular HGB CONC 32.5 g/dL (32.0-36.0); Mean Corpuscular Hemoglobin 28.3 pg (27.0-31.0); Mean Corpuscular Volume 87.2 fl (78.0-98.0); Mean Platelet Volume 7.2 fL (7.4-10.4); Platelet Count 416 10x3/uL (130-400); RBC Distribution Width 13.3 % (11.5-14.5); Red Blood Cell (RBC) Count 2.61 mill/uL (4.20-5.40); White Blood Cell (WBC) Count 11.9 10x3/uL (4.8-10.8)
[2022-12-22 06:50] LABS: ALT (SGPT) 34 U/L (8-55); AST (SGOT) 53 U/L (5-34); Albumin 2.4 g/dL (3.5-5.0); Alkaline Phosphatase 87 U/L (40-110); Anion Gap 11 mmol/L (10-20); BUN (Urea Nitrogen) 9 mg/dL (7.0-18.7); Bilirubin, Total 0.4 mg/dL (0.2-1.2); Calc. Creatinine Clearance 179 mL/min (70-130); Calcium 8.6 mg/dL (7.8-10.44); Carbon Dioxide 28 mmol/L (22-29); Chloride 99 mmol/L (98-107); Estimated GFR 116; Globulin 3.8 g/dL (2.4-3.5); Glucose 208 mg/dL (70-105); Potassium 4.2 mmol/L (3.5-5.1); Protein, Total 6.2 g/dL (6.0-8.3); Sodium 134 mmol/L (136-145)
[2022-12-22] MEDS: traMADol HCl 50 MG TAB PO PRN (07:51)
[2022-12-22] MEDS: Insulin Glargine 30 UNITS/0.3 ML VIAL SC SCH ×2 (09:23→21:06)
[2022-12-22] MEDS: Cholecalciferol 1,000 UNITS (25 MCG) TAB PO SCH (09:24)
[2022-12-22] MEDS: Saccharomyces boulardii 250 MG CAP PO SCH (09:24)
[2022-12-22] MEDS: Calcium Carbonate 600 MG TAB PO SCH ×2 (09:24→21:07)
[2022-12-22] MEDS: Fluconazole In NaCl,Iso-Osm 400 MG in Premix Bag 1 BAG IVPB SCH (09:25)
[2022-12-23 05:18] LABS: #Eosinphils 0.1 thou/uL (0.0-0.7); #Lymphocytes 1.2 thou/uL (1.20-3.40); #Monocytes 0.9 thou/uL (0.11-0.59); #Neutrophils 10.8 thou/uL (1.40-6.50); %Basophils 0.4 % (0.0-1.0); %Eosinophils 1.1 % (0.0-10.0); %Lymphocytes 9.1 % (21.0-51.0); %Monocytes 6.6 % (0.0-10.0); %Neutrophils 82.9 % (42.0-75.0); Hemoglobin 7.7 g/dL (12.0-16.0); Mean Corpuscular HGB CONC 31.5 g/dL (32.0-36.0); Mean Corpuscular Hemoglobin 27.5 pg (27.0-31.0); Mean Corpuscular Volume 87.5 fl (78.0-98.0); Mean Platelet Volume 7.1 fL (7.4-10.4); Platelet Count 436 10x3/uL (130-400); RBC Distribution Width 13.5 % (11.5-14.5); Red Blood Cell (RBC) Count 2.79 mill/uL (4.20-5.40)
[2022-12-23] MEDS: Meropenem 1 GM in Sodium Chloride 0.9% 100 ML IVPB SCH ×3 (05:39→20:45)
[2022-12-23] MEDS: Fluconazole In NaCl,Iso-Osm 400 MG in Premix Bag 1 BAG IVPB SCH (08:29)
[2022-12-23] MEDS: Insulin Glargine 30 UNITS/0.3 ML VIAL SC SCH ×2 (08:30→20:43)
[2022-12-23] MEDS: Saccharomyces boulardii 250 MG CAP PO SCH (08:30)
[2022-12-23] MEDS: Calcium Carbonate 600 MG TAB PO SCH ×2 (08:30→20:45)
[2022-12-23] MEDS: Cholecalciferol 1,000 UNITS (25 MCG) TAB PO SCH (08:30)
[2022-12-23] MEDS: traMADol HCl 50 MG TAB PO PRN (08:31)
[2022-12-23] MEDS: HumaLOG 300 UNITS/3 ML VIAL SC PRN ×2 (11:42→20:44)
[2022-12-23] MEDS ORDERED: traMADol HCl 50 MG TAB PO PRN (14:30)
[2022-12-24 05:42] LABS: #Eosinphils 0.2 thou/uL (0.0-0.7); #Monocytes 0.7 thou/uL (0.11-0.59); #Neutrophils 7.8 thou/uL (1.40-6.50); %Basophils 0.4 % (0.0-1.0); %Eosinophils 1.9 % (0.0-10.0); %Lymphocytes 10.8 % (21.0-51.0); %Monocytes 6.8 % (0.0-10.0); %Neutrophils 80.1 % (42.0-75.0); Hemoglobin 7.3 g/dL (12.0-16.0); Mean Corpuscular HGB CONC 30.2 g/dL (32.0-36.0); Mean Corpuscular Hemoglobin 26.4 pg (27.0-31.0); Mean Corpuscular Volume 87.4 fl (78.0-98.0); Platelet Count 470 10x3/uL (130-400); RBC Distribution Width 13.4 % (11.5-14.5); Red Blood Cell (RBC) Count 2.77 mill/uL (4.20-5.40); White Blood Cell (WBC) Count 9.7 10x3/uL (4.8-10.8)
[2022-12-24] MEDS: Meropenem 1 GM in Sodium Chloride 0.9% 100 ML IVPB SCH ×3 (05:43→21:27)
[2022-12-24] MEDS: Fluconazole In NaCl,Iso-Osm 400 MG in Premix Bag 1 BAG IVPB SCH (08:40)
[2022-12-24] MEDS: Cholecalciferol 1,000 UNITS (25 MCG) TAB PO SCH (08:41)
[2022-12-24] MEDS: Saccharomyces boulardii 250 MG CAP PO SCH (08:41)
[2022-12-24] MEDS: Calcium Carbonate 600 MG TAB PO SCH ×2 (08:41→21:27)
[2022-12-24] MEDS: Insulin Glargine 30 UNITS/0.3 ML VIAL SC SCH ×2 (08:41→21:26)
[2022-12-24] MEDS: HumaLOG 300 UNITS/3 ML VIAL SC PRN ×2 (12:21→21:28)
[2022-12-25] MEDS: Meropenem 1 GM in Sodium Chloride 0.9% 100 ML IVPB SCH ×3 (05:28→21:37)
[2022-12-25 06:20] LABS: #Eosinphils 0.2 thou/uL (0.0-0.7); #Lymphocytes 0.9 thou/uL (1.20-3.40); #Monocytes 0.6 thou/uL (0.11-0.59); #Neutrophils 6.7 thou/uL (1.40-6.50); %Basophils 0.4 % (0.0-1.0); %Lymphocytes 10.9 % (21.0-51.0); %Monocytes 7.2 % (0.0-10.0); %Neutrophils 79.5 % (42.0-75.0); Hemoglobin 7.3 g/dL (12.0-16.0); Mean Corpuscular HGB CONC 31.4 g/dL (32.0-36.0); Mean Corpuscular Hemoglobin 27.5 pg (27.0-31.0); Mean Corpuscular Volume 87.4 fl (78.0-98.0); Platelet Count 414 10x3/uL (130-400); RBC Distribution Width 13.6 % (11.5-14.5); Red Blood Cell (RBC) Count 2.66 mill/uL (4.20-5.40); White Blood Cell (WBC) Count 8.4 10x3/uL (4.8-10.8)
[2022-12-25 06:38] LABS: ALT (SGPT) 25 U/L (8-55); AST (SGOT) 35 U/L (5-34); Albumin 2.4 g/dL (3.5-5.0); Alkaline Phosphatase 69 U/L (40-110); Anion Gap 11 mmol/L (10-20); BUN (Urea Nitrogen) 9 mg/dL (7.0-18.7); Bilirubin, Total 0.3 mg/dL (0.2-1.2); Calc. Creatinine Clearance 184 mL/min (70-130); Calcium 8.6 mg/dL (7.8-10.44); Carbon Dioxide 30 mmol/L (22-29); Chloride 98 mmol/L (98-107); Estimated GFR 118; Globulin 3.7 g/dL (2.4-3.5); Glucose 120 mg/dL (70-105); Lipase 147 U/L (8-78); Magnesium 1.5 mg/dL (1.6-2.6); Phosphorus 3.9 mg/dL (2.3-4.7); Protein, Total 6.1 g/dL (6.0-8.3); Sodium 135 mmol/L (136-145)
[2022-12-25 06:51] LABS: Pregnancy Test - Urine (BHCG) Negative (Negative); Pregu Control Background? CLEAR/WHITE (CLR/WHITE); Pregu Control Bar Appear? YES (CONTROL BAR); Specific Gravity 1.008 (1.002-1.036)
[2022-12-25] MEDS: Cholecalciferol 1,000 UNITS (25 MCG) TAB PO SCH (07:59)
[2022-12-25] MEDS: Saccharomyces boulardii 250 MG CAP PO SCH (07:59)
[2022-12-25] MEDS: Calcium Carbonate 600 MG TAB PO SCH ×2 (07:59→21:38)
[2022-12-25] MEDS: Insulin Glargine 30 UNITS/0.3 ML VIAL SC SCH ×3 (07:59→21:38)
[2022-12-25] MEDS ORDERED: Magnesium 2 GM/50 ML(in water) 2 GM in Premix Bag 1 BAG IVPB SCH (08:00)
[2022-12-25] MEDS ORDERED: Iopamidol-370 76% 500 ML MDV (1 ML CHARGE) ONE (10:24)
[2022-12-26] MEDS: Meropenem 1 GM in Sodium Chloride 0.9% 100 ML IVPB SCH ×2 (05:38→14:16)
[2022-12-26] MEDS: Saccharomyces boulardii 250 MG CAP PO SCH (08:24)
[2022-12-26] MEDS: Calcium Carbonate 600 MG TAB PO SCH ×2 (08:24→21:45)
[2022-12-26] MEDS: Cholecalciferol 1,000 UNITS (25 MCG) TAB PO SCH (08:24)
[2022-12-26] MEDS: Insulin Glargine 30 UNITS/0.3 ML VIAL SC SCH ×2 (08:24→21:45)
[2022-12-26 11:12] VITALS: BMI 36.9
[2022-12-26] MEDS: HumaLOG 300 UNITS/3 ML VIAL SC PRN (17:33)
[2022-12-27] MEDS: Saccharomyces boulardii 250 MG CAP PO SCH (08:32)
[2022-12-27] MEDS: Calcium Carbonate 600 MG TAB PO SCH (08:32)
[2022-12-27] MEDS: Insulin Glargine 30 UNITS/0.3 ML VIAL SC SCH (08:32)
[2022-12-27] MEDS: Cholecalciferol 1,000 UNITS (25 MCG) TAB PO SCH (08:32)
[2022-12-27] MEDS: HumaLOG 300 UNITS/3 ML VIAL SC PRN (11:23)
[2022-12-27 15:36] VITALS: BP 144/77; TEMP 98.2
== END 2022-12-27 17:26 | disposition home or self-care (01) | DRG 444 ==
LOC: SURG A 19:58 → IMCU/EMU 12-07 12:17 → SURG A 12-10 19:19
PROVIDERS: ADMIT Family Medicine; ATTEND Family Medicine
PROC: 0FC98ZZ Extirpation of Matter from Common Bile Duct, Via Natural or Artificial Opening Endoscopic (ICD-10-PCS; principal; 2022-12-06)
PROC: BF131ZZ Fluoroscopy of Gallbladder and Bile Ducts using Low Osmolar Contrast (ICD-10-PCS; 2022-12-06)
PROC: 0F9G3ZZ Drainage of Pancreas, Percutaneous Approach (ICD-10-PCS; 2022-12-20)
DX: K80.42 Calculus of bile duct with acute cholecystitis without obstruction (principal); K85.11 Biliary acute pancreatitis with uninfected necrosis; K86.3 Pseudocyst of pancreas; N17.9 Acute kidney failure, unspecified; Q61.2 Polycystic kidney, adult type; Z20.822 Contact with and (suspected) exposure to COVID-19; J45.909 Unspecified asthma, uncomplicated; R73.9 Hyperglycemia, unspecified; E55.9 Vitamin D deficiency, unspecified; N63.0 Unspecified lump in unspecified breast; N20.0 Calculus of kidney; E66.01 Morbid (severe) obesity due to excess calories; E87.70 Fluid overload, unspecified; Z68.38 Body mass index [BMI] 38.0-38.9, adult; Z91.018 Allergy to other foods; Z90.49 Acquired absence of other specified parts of digestive tract; Z79.899 Other long term (current) drug therapy
CPT/HCPCS: 36415; 36416; 49020; 71045; 71275; 74177; 74330; 76705; 77002; 80048; 80053; 80061; 80076; 81025; 82010; 82330; 82652; 83036; 83605; 83690; 83735; 84100; 84703; 85014; 85018; 85025; 85027; 85379; 85610; 85730; 87040; 87070; 87205; 87324; 87449; 87505; 87811; 93005; 93010; 94640; C1769; C9113; J0610; J0611; J1100; J1450; J1650; J1815; J1940; J2185; J2250; J2270; J2272; J2405; J2543; J2704; J3010; J3475; J3480; J3490; J7030; J7050; J7611; J7620; P9047; Q0162; Q9967; U0002

== ENCOUNTER 2023-01-20 08:51 | Outpatient (CLI) | payer OTHER | END 2023-01-20 08:52 | disposition home or self-care (01) | LOC: CT 08:51 | PROVIDERS: ATTEND Physician Assistant Medical | DX: K85.91 Acute pancreatitis with uninfected necrosis, unspecified (principal); K86.3 Pseudocyst of pancreas; R18.8 Other ascites | CPT/HCPCS: 74178 ==

== ENCOUNTER 2023-04-06 15:16 | Emergency (ER) | payer OTHER ==
[~2023-04-06 15:16] MED LIST: Iopamidol-370 76% 500 ML MDV (1 ML CHARGE) ONE
[2023-04-06 15:50] LABS: Hemoglobin 10.3 g/dL (12.0-16.0); Mean Corpuscular Hemoglobin 23.9 pg (27.0-31.0); Mean Corpuscular Volume 74.7 fl (78.0-98.0); Mean Platelet Volume 10.7 fL (7.4-10.4); Platelet Count 217 10x3/uL (130-400); RBC Distribution Width 15.7 % (11.5-14.5); Red Blood Cell (RBC) Count 4.31 mill/uL (4.20-5.40); White Blood Cell (WBC) Count 5.2 10x3/uL (4.8-10.8)
[2023-04-06 15:55] LABS: Delete Auto Diff?? YES; Manual Diff?? YES
[2023-04-06 16:02] LABS: INR-International Normal Ratio 1.2; PTT 24.6 sec (22.9-36.1); Prothrombin Time 15.8 sec (12.0-14.7)
[2023-04-06] MEDS ORDERED: Acetaminophen 500 MG TAB ONE (16:06)
[2023-04-06] MEDS ORDERED: Ibuprofen 800 MG TAB ONE (16:06)
[2023-04-06] MEDS ORDERED: Ondansetron PF 4 MG/2 ML Vial ONE (16:07)
[2023-04-06 16:12] LABS: ALT (SGPT) 9 U/L (8-55); AST (SGOT) 12 U/L (5-34); Albumin 3.8 g/dL (3.5-5.0); Alkaline Phosphatase 54 U/L (40-110); Anion Gap 20 mmol/L (10-20); BUN (Urea Nitrogen) 16 mg/dL (7.0-18.7); Bilirubin, Total 0.4 mg/dL (0.2-1.2); Calc. Creatinine Clearance 0 mL/min (70-130); Calcium 9.6 mg/dL (7.8-10.44); Carbon Dioxide 17 mmol/L (22-29); Chloride 96 mmol/L (98-107); Estimated GFR 74; Globulin 3.9 g/dL (2.4-3.5); Glucose 136 mg/dL (70-105); Lipase 11 U/L (8-78); Potassium 3.2 mmol/L (3.5-5.1); Protein, Total 7.7 g/dL (6.0-8.3); Sodium 130 mmol/L (136-145)
[2023-04-06 16:22] LABS: Anisocytosis SLIGHT = 6-15 cells HPF (0-5); Band 34 % (5-11); CellaVision Operator ID LAB.MJL; Dohle Bodies SLIGHT; Hypochromia SLIGHT = 6-15 cells HPF (0-5); Large Platelets 3.9 % (0-5); Lymphocytes 19 % (21-51); Metamyelocyte 2 % (0-0); Microcytosis SLIGHT = 6-15 cells HPF (0-5); Monocytes 22 % (0-10); Neutrophil 23 % (42-75); Ovalocytes SLIGHT = 2-5 cells HPF (0-1); Platelet Adequacy Comment Platelets Normal; Polychromasia SLIGHT = 2-3 cells HPF (0-2); Total Cell Count 103
[2023-04-06] MEDS ORDERED: Piperacillin/Tazobactam 3.375 GM VIAL ONE (17:07)
[2023-04-06 17:17] LABS: BHCG - Serum Negative (NEGATIVE); Pregs Control Background? CLEAR/WHITE (CLR/WHITE); Pregs Control Bar Appear? YES (CONTROL BAR)
[2023-04-06 19:26] LABS: SARS-CoV-2 NAA Rapid Test Not Detected (NotDetected)
[2023-04-06 20:17] LABS: Bilirubin Negative (Negative); Blood, Urine 1+ (Negative); CAUTI Indications for Culture Fever or rigors; Clarity Clear (Clear); Glucose, Urine (Dipstick) Normal (Negative); Ketone, Urine 40 mg/dL (Negative); Leukocyte Negative Leu/uL (Negative); Nitrite Negative (Negative); Protein, Urine (Dipstick) 100 mg/dL (Neg-Trace); Renal Epithelial 0-3 HPF (None Seen); Urobilinogen Normal mg/dL (Less than 2)
[2023-04-06 20:18] LABS: Pregnancy Test - Urine (BHCG) Negative (Negative); Pregu Control Background? CLEAR/WHITE (CLR/WHITE); Pregu Control Bar Appear? YES (CONTROL BAR); Specific Gravity 1.054 (1.002-1.036)
[2023-04-06 20:25] LABS: Bacteria/HPF 3+ HPF (None Seen); Specific Gravity, Urine 1.054 (1.002-1.036)
[2023-04-06 20:27] LABS: Squamous Epithelial 0-3 HPF (0-3)
[2023-04-06 20:29] LABS: Urine Culture Reflex No No
== END 2023-04-07 00:06 | disposition short-term general hospital (02) ==
LOC: ERS 15:16
DX: K86.2 Cyst of pancreas (principal); A41.9 Sepsis, unspecified organism; Z20.822 Contact with and (suspected) exposure to COVID-19
CPT/HCPCS: 36415; 71045; 74177; 80053; 81001; 81025; 83605; 83690; 84703; 85025; 85610; 85730; 87040; 87086; 93005; 96361; 96365; 96375; J2405; J2543; Q9967

== ENCOUNTER 2023-05-09 19:40 | Emergency (ER) | payer MEDICAID ==
[2023-05-09 20:13] LABS: #Eosinphils 0.1 thou/uL (0.0-0.7); #Monocytes 0.3 thou/uL (0.11-0.59); %Basophils 0.3 % (0.0-1.0); %Eosinophils 1.4 % (0.0-10.0); %Lymphocytes 24.3 % (21.0-51.0); %Monocytes 5.4 % (0.0-10.0); %Neutrophils 68.4 % (42.0-75.0); Hematocrit 33.1 % (36.0-47.0); Hemoglobin 10.5 g/dL (12.0-16.0); Mean Corpuscular HGB CONC 31.7 g/dL (32.0-36.0); Mean Corpuscular Hemoglobin 25.5 pg (27.0-31.0); Mean Corpuscular Volume 80.3 fl (78.0-98.0); Mean Platelet Volume 10.3 fL (7.4-10.4); Platelet Count 154 10x3/uL (130-400); RBC Distribution Width 18.6 % (11.5-14.5); Red Blood Cell (RBC) Count 4.12 mill/uL (4.20-5.40); White Blood Cell (WBC) Count 5.9 10x3/uL (4.8-10.8)
[2023-05-09 20:39] LABS: ALT (SGPT) Less than 7 U/L (8-55); AST (SGOT) 14 U/L (5-34); Albumin 3.9 g/dL (3.5-5.0); Alkaline Phosphatase 44 U/L (40-110); Anion Gap 12 mmol/L (10-20); BUN (Urea Nitrogen) 14 mg/dL (7.0-18.7); Bilirubin, Total 0.3 mg/dL (0.2-1.2); Calc. Creatinine Clearance 0 mL/min (70-130); Calcium 9.1 mg/dL (7.8-10.44); Carbon Dioxide 23 mmol/L (22-29); Chloride 103 mmol/L (98-107); Estimated GFR 78; Globulin 3.3 g/dL (2.4-3.5); Glucose 145 mg/dL (70-105); Lipase 21 U/L (8-78); Potassium 3.9 mmol/L (3.5-5.1); Protein, Total 7.2 g/dL (6.0-8.3); Sodium 134 mmol/L (136-145)
[2023-05-09] MEDS ORDERED: Ketorolac Tromethamine 30 MG/ML VIAL ONE (21:26)
[2023-05-09 21:53] LABS: Bacteria/HPF None Seen HPF (None Seen); Bilirubin Negative (Negative); Blood, Urine Negative (Negative); CAUTI Indications for Culture Dysuria,urgency,freq; Clarity Clear (Clear); Glucose, Urine (Dipstick) Normal (Negative); Ketone, Urine Negative (Negative); Leukocyte Negative Leu/uL (Negative); Nitrite Negative (Negative); Protein, Urine (Dipstick) Negative (Neg-Trace); RBC/HPF 0-3 HPF (0-3); Specific Gravity, Urine 1.013 (1.002-1.036); Squamous Epithelial 0-3 HPF (0-3); Urobilinogen Normal mg/dL (Less than 2); WBC/HPF 0-3 HPF (0-3); pH, Urine 6.5 (5.0-9.0)
[2023-05-09 21:54] LABS: Pregnancy Test - Urine (BHCG) Negative (Negative); Pregu Control Background? CLEAR/WHITE (CLR/WHITE); Pregu Control Bar Appear? YES (CONTROL BAR); Specific Gravity 1.013 (1.002-1.036)
[2023-05-09 21:55] LABS: Urine Culture Reflex No No
== END 2023-05-10 00:12 | disposition home or self-care (01) ==
LOC: ERS 19:40
DX: K80.20 Calculus of gallbladder without cholecystitis without obstruction (principal); J45.909 Unspecified asthma, uncomplicated; Z79.899 Other long term (current) drug therapy
CPT/HCPCS: 36415; 76705; 80053; 81001; 81025; 83690; 85025; 93005; 96372; J1885